=== PATIENT | male | born 1970 | race Caucasian/White ===

== ENCOUNTER 2019-01-06 21:23 | Emergency (ER) | payer BC ==
[~2019-01-06] VITALS: Ht 185.4 cm; Wt 153.0 kg
[~2019-01-06 21:23] MED LIST: ACET500C5 PO; CEPH-443 PO; FAMO-96 PO; SULF1TAB31 PO
[2019-01-06 21:31] VITALS: Ht 185.4 cm; Wt 153.0 kg
[2019-01-06 23:11] VITALS: BP 147/105; PULSE 83; RESP 18
--- NOTE | 2019-01-07 05:09 | ERD ---
ER Documentation Chief Complaint Chief Complaint R lower leg redness/swelling X 2 days HPI 48-year-old male presents emergency department complaining of redness to the right lower leg which is been spreading over the past 2 days. He states he believes he sustained an insect bite here which became infected after going on a trip to [place]. He denies any fevers or chills or other symptoms at this time. Overall, symptoms have improved. He tried no medication for relief of symptoms. He does have history of type 2 diabetes and hypertension. No other symptoms reported currently. ROS All systems reviewed and are negative except as per history of present illness. Medications Home Meds Active Scripts Sulfamethoxazole/Trimethoprim* (Bactrim Ds* Tablet) 1 Each Tablet, 1 TAB PO BID, #14 TAB Prov:ANIYA DOCKERY PA-C 01/06/19 Cephalexin* (Keflex*) 500 Mg Capsule, 500 MG PO QID for 7 Days, CAP Prov:ANIYA DOCKERY PA-C 01/06/19 Acetaminophen* (Tylophen*) 500 Mg Capsule, 1 CAP PO Q6H PRN for PAIN AND OR ELEVATED TEMP, #20 CAP Prov:HODAN CROSS PA-C 01/20/16 Famotidine* (Pepcid*) 20 Mg Tablet, 20 MG PO BID for 14 Days, TAB Prov:HODAN CROSS PA-C 01/20/16 Allergies Allergies: Coded Allergies: No Known Allergy (Unverified , 01/06/19) PMhx/Soc Hx Neurological Disorder: No Hx Respiratory Disorders: No Hx Cardiac Disorders: Yes (HTN ) Hx Psychiatric Problems: No Hx Miscellaneous Medical Probl: No Hx Alcohol Use: No Hx Substance Use: No Hx Tobacco Use: No FmHx Family History: No diabetes Physical Exam Vitals Vital Signs Date Temp Pulse Resp B/P (MAP) Pulse Ox O2 O2 Flow FiO2 Time Delivery Rate 01/06/19 98.2 83 18 147/105 96 23:11 (119) 01/06/19 98.5 89 18 157/103 97 Room Air 22:31 (121) 01/06/19 98.6 96 18 191/101 95 21:31 (131) Physical Exam Const: No acute distress Head: Atraumatic Eyes: Normal Conjunctiva ENT: Normal External Ears, Nose and Mouth. Neck: Full range of motion. No meningismus. Resp: Clear to auscultation bilaterally Cardio: Regular rate and rhythm, no murmurs Skin: No petechiae or rashes Back: No midline or flank tenderness Ext: Localized area of erythema noted to the right lower leg. Erythema is not circumferential. There is some mild associated warmth. The patient is neurovascularly intact to the right lower extremity. Neur: Awake and alert Psych: Normal Mood and Affect Procedures/MDM 48-year-old male is presenting for uncomplicated cellulitis of the right lower extremity. No evidence of systemic infection. I doubt sepsis, necrotizing fasciitis, or other emergent process. Patient's vital signs are stable and he is nontoxic and well-appearing. He will be discharged home in stable condition with prescription for Keflex and Bactrim. I did advise for 48-hour wound check with his primary care physician. He should return here immediately for any concerning symptoms. He understands and agrees with the plan. Patient's blood pressure was elevated (>120/80) but appears stable without evidence of hypertension emergency or urgency. The patient is to follow-up and pursue outpatient monitoring and therapy with their primary care physician within 1 week and return immediately if they have any new, worsening, or concerning symptoms. Departure Diagnosis: Primary Impression: Cellulitis of right lower extremity Condition: Fair Patient Instructions: Cellulitis Additional Instructions: Call your primary care doctor TOMORROW for an appointment during the next 1-2 days.See the doctor sooner or return here if your condition worsens before your appointment time. ANIYA DOCKERY PA-C Jan 07, 2019 05:09
== END 2019-01-06 23:12 | disposition home or self-care (01) ==
LOC: FTE 21:23
DX: L03.115 Cellulitis of right lower limb (principal); I10 Essential (primary) hypertension
CPT/HCPCS: 99283